=== PATIENT | male | born 1970 | race Caucasian/White ===

== ENCOUNTER 2018-02-28 10:03 | Day surgery (SDC) | payer OTHER ==
[2018-02-23 10:34] VITALS: BMI 21.4
[2018-02-28] MEDS ORDERED: BUPIVACAINE HCL 0.25% 125 MG/50 ML VIAL NR ONE (11:40)
[2018-02-28 12:30] VITALS: PULSE 74; TEMP 98.4
[2018-02-28 12:45] VITALS: BP 109/68
--- NOTE | 2018-03-01 10:27 | OP ---
DATE OF OPERATION: 02/28/2018 PREOPERATIVE DIAGNOSIS: Left index finger mass. POSTOPERATIVE DIAGNOSIS: Left index finger mass. OPERATIVE PROCEDURE: 1. Left index finger mass excision. 2. Local soft tissue rearrangement, less than 2 cm. SURGEON: Jayden Miranda MD ANESTHESIA: Local. COMPLICATIONS: None. ESTIMATED BLOOD LOSS: Minimal. INDICATION FOR PROCEDURE: The patient is a 47-year-old male with the above finding, indicated for operative treatment. Risks, benefits, and alternatives were discussed with patient at length. Proper informed consent was obtained. PROCEDURE: After proper identification of patient and correct operative site, patient was brought to the operating room, placed supine on the operating table. All prominences were well padded. Local anesthesia was given with a digital nerve block with 0.25% Marcaine. Left upper extremity was prepped and draped in usual sterile fashion. Finger tourniquet was used. An incision was made over the dorsal aspect of the DIP joint which was where the mass was present. Blunt and sharp dissection was performed through the subcutaneous tissue. 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 This was excised in whole, taking care to protect the germinal matrix of the nailbed as well as the distal tendon insertion. This was sent for pathological evaluation. Local soft tissue rearrangement was performed to repair the wound. The wound was then repaired with a 5-0 nylon suture. Sterile dressings were applied. Patient was reversed from anesthesia and brought to Recovery in stable condition. Geovanna [id number]
--- NOTE | 2018-03-02 11:37 | PATH ---
Surgical Pathology Report Patient Name: JOY GODDARD [facility]. Rec. #: [id number] /Age/Gender: 1970 (Age: 47) / M Account: [id number] Location: [facility] Taken: 02/28/2018 Received: 02/28/2018 Reported: 03/02/2018 Physicians: Jayden Miranda M.D. Specimen(s) Received LEFT INDEX FINGER MASS Clinical History Left index finger mass Final Diagnosis INDEX FINGER, MASS, LEFT, EXCISION: CONSISTENT WITH TENOSYNOVIAL GIANT CELL TUMOR. Electronically Signed Natalee Diaz M.D. Gross Description Received in formalin labeled "left index finger mass," are 2 plaza, irregular portions of firm tissue measuring 0.4 x 0.3 x 0.2 cm and 1.0 x 0.7 x 0.5 cm. The larger portion is bisected and the specimen is entirely submitted in one cassette. /03/01/2018 saudi03/01/2018
== END 2018-02-28 12:45 | disposition home or self-care (01) ==
LOC: FASU 10:03
PROVIDERS: ATTEND Orthopaedic Surgery Hand Surgery
PROC: 0JXK0ZB Transfer Left Hand Subcutaneous Tissue and Fascia with Skin and Subcutaneous Tissue, Open Approach (ICD-10-PCS; 2018-02-28)
PROC: 0JBK0ZZ Excision of Left Hand Subcutaneous Tissue and Fascia, Open Approach (ICD-10-PCS; principal; 2018-02-28 11:54)
DX: D48.1 Neoplasm of uncertain behavior of connective and other soft tissue (principal)
CPT/HCPCS: 88305-TC